=== PATIENT | female | born 1970 | race Caucasian/White ===

== ENCOUNTER 2017-10-02 11:15 | Observation (INO) | payer OTHER ==
[~2017-10-02 11:15] MED LIST: ATROPINE 1 MG/10 ML SYRINGE IV; DIPHENHYDRAMINE 50 MG INJ IV; EPHEDrine SULFATE 50 MG/5 ML SYG IV; FENTAnyl 50 MCG/ML VIAL IV; HYDROmorphONE (0.2 MG/ML) 10ML SYG IV; LABETALOL HCL 20MG INJ IV; MIDAZOLAM 1 MG/ML 2 ML INJ IV; ONDANSETRON 4 MG INJ IV; OXYCODONE/ACETAMINOPHEN (5/325) TAB PO; hydrALAzine 20 MG INJ IV; morphine (1 MG/ML) 10ML SYRINGE IV
[2017-10-02 12:41] LABS: ADD MAN DIFF? NO
[2017-10-02 12:43] LABS: BASOPHIL # 0.1 10^3/ul (0.0-0.1); BASOPHILS % 0.7 % (0.0-2.0); EOSINOPHILS # 0.4 10^3/ul (0.0-0.5); EOSINOPHILS % 3.4 % (0.0-7.0); HEMATOCRIT 35.6 % (37.0-47.0); HEMOGLOBIN 11.7 g/dl (12.0-16.0); LYMPHOCYTES # 3.9 10^3/ul (0.8-2.9); LYMPHOCYTES % 37.6 % (15.0-51.0); MEAN CORPUSCULAR HEMOGLOBIN 24.6 pg (29.0-33.0); MEAN CORPUSCULAR HGB CONC 32.9 g/dl (32.0-37.0); MEAN CORPUSCULAR VOLUME 74.9 fl (82.0-101.0); MONOCYTE # 0.4 10^3/ul (0.3-0.9); MONOCYTES % 4.2 % (0.0-11.0); NEUTROPHIL # 5.6 10^3/ul (1.6-7.5); NEUTROPHILS % 53.8 % (39.0-77.0); PLATELET COUNT 372 10^3/UL (140-415); RED BLOOD COUNT 4.75 10^6/ul (4.20-5.40); RED CELL DISTRIBUTION WIDTH 14.6 % (11.5-14.5)
[2017-10-02 12:43] LABS: WHITE BLOOD COUNT 10.5 10^3/ul (4.8-10.8)
[2017-10-02 12:53] LABS: ALANINE AMINOTRANSFERASE 88 IU/L (13-69); ALBUMIN 4.7 g/dl (3.3-4.9); ALBUMIN/GLOBULIN RATIO 1.34; ALKALINE PHOSPHATASE 109 IU/L (42-121); ANION GAP 14 (8-16); ASPARTATE AMINO TRANSFERASE 64 IU/L (15-46); BILIRUBIN,INDIRECT 0.7 mg/dl (0-1.1); BILIRUBIN,TOTAL 0.7 mg/dl (0.2-1.3); CARBON DIOXIDE 29 mmol/L (21-31); CHLORIDE 103 mmol/L (97-110); GLUCOSE 102 mg/dl (70-220); TOTAL PROTEIN 8.2 g/dl (6.1-8.1)
[2017-10-02 13:02] LABS: BLOOD UREA NITROGEN 8 mg/dl (7-20); CALCIUM 9.7 mg/dl (8.4-10.2); CREATININE 0.61 mg/dl (0.44-1.00); INR 0.95; POTASSIUM 4.2 mmol/L (3.5-5.1); PROTIME 12.8 Sec (11.9-14.9); SODIUM 142 mmol/L (135-144)
[2017-10-02 13:03] LABS: PARTIAL THROMBOPLASTIN TIME 29.9 Sec (25.0-35.0)
[2017-10-02] MEDS ORDERED: FENTAnyl 50 MCG/ML VIAL (13:35)
[2017-10-02] MEDS ORDERED: PROPOFOL 20 ML (13:35)
[2017-10-02] MEDS ORDERED: ONDANSETRON 4 MG INJ (13:36)
[2017-10-02] MEDS ORDERED: DEXAMETHASONE 4 MG/ML 1 ML INJ (13:36)
[2017-10-02] MEDS ORDERED: SUCCINYLCHOLINE CHLORIDE 100 MG/5 ML SYG IV (13:36)
[2017-10-02] MEDS ORDERED: GLYCOPYRROLATE 0.4 MG INJ (13:37)
[2017-10-02] MEDS ORDERED: NEOSTIGMINE 3 MG/3 ML SYRINGE (13:37)
[2017-10-02] MEDS ORDERED: morphine 2 MG INJ IV (16:00)
[2017-10-02] MEDS ORDERED: ACETAMINOPHEN 1000MG/100ML IV 100 ML IVPB (16:00)
[2017-10-02] MEDS ORDERED: ONDANSETRON 4 MG INJ IV (16:00)
[2017-10-02] MEDS: MEPERIDINE 25 MG INJ IV (16:36)
[2017-10-02] MEDS: HYDROmorphONE (0.2 MG/ML) 10ML SYG IV ×2 (16:37→17:06)
[2017-10-02] MEDS: D5W-0.45 NACL + KCL 20 MEQ 1,000 ML IV (17:32)
[2017-10-03] MEDS: D5W-0.45 NACL + KCL 20 MEQ 1,000 ML IV ×2 (00:52→10:00)
[2017-10-03 05:20] LABS: ADD MAN DIFF? NO
[2017-10-03 05:27] LABS: BASOPHILS % 0.3 % (0.0-2.0); EOSINOPHILS % 0.1 % (0.0-7.0); HEMATOCRIT 33.3 % (37.0-47.0); HEMOGLOBIN 10.9 g/dl (12.0-16.0); LYMPHOCYTES # 1.4 10^3/ul (0.8-2.9); LYMPHOCYTES % 11.7 % (15.0-51.0); MEAN CORPUSCULAR HEMOGLOBIN 24.9 pg (29.0-33.0); MEAN CORPUSCULAR HGB CONC 32.7 g/dl (32.0-37.0); MEAN CORPUSCULAR VOLUME 76.2 fl (82.0-101.0); MEAN PLATELET VOLUME 9.8 fl (7.4-10.4); MONOCYTE # 0.4 10^3/ul (0.3-0.9); MONOCYTES % 3.4 % (0.0-11.0); NEUTROPHILS % 84.2 % (39.0-77.0); PLATELET COUNT 332 10^3/UL (140-415); RED BLOOD COUNT 4.37 10^6/ul (4.20-5.40); RED CELL DISTRIBUTION WIDTH 14.6 % (11.5-14.5)
[2017-10-03 05:27] LABS: WHITE BLOOD COUNT 11.9 10^3/ul (4.8-10.8)
[2017-10-03 05:54] LABS: ALANINE AMINOTRANSFERASE 75 IU/L (13-69); ALBUMIN 4.3 g/dl (3.3-4.9); ALBUMIN/GLOBULIN RATIO 1.26; ALKALINE PHOSPHATASE 88 IU/L (42-121); ANION GAP 15 (8-16); ASPARTATE AMINO TRANSFERASE 46 IU/L (15-46); BILIRUBIN,INDIRECT 1.1 mg/dl (0-1.1); BILIRUBIN,TOTAL 1.1 mg/dl (0.2-1.3); BLOOD UREA NITROGEN 6 mg/dl (7-20); CALCIUM 9.4 mg/dl (8.4-10.2); CARBON DIOXIDE 27 mmol/L (21-31); CHLORIDE 105 mmol/L (97-110); CREATININE 0.52 mg/dl (0.44-1.00); GLUCOSE 140 mg/dl (70-220); POTASSIUM 4.9 mmol/L (3.5-5.1); SODIUM 142 mmol/L (135-144); TOTAL PROTEIN 7.7 g/dl (6.1-8.1)
[2017-10-03] MEDS: ACETAMINOPHEN 500 MG TAB PO (11:13)
== END 2017-10-03 18:01 | disposition home or self-care (01) ==
LOC: REC 11:15 → MS1 17:22
DX: C50.412 Malignant neoplasm of upper-outer quadrant of left female breast (principal); Z17.0 Estrogen receptor positive status [ER+]; E78.5 Hyperlipidemia, unspecified; J45.909 Unspecified asthma, uncomplicated; R74.8 Abnormal levels of other serum enzymes; Z80.3 Family history of malignant neoplasm of breast; Z88.8 Allergy status to other drugs, medicaments and biological substances
CPT/HCPCS: 19307; 80053; 84703; 85025; 85610; 85730; 88307; 99217

== ENCOUNTER 2017-11-12 07:42 | Day surgery (SDC) | payer OTHER ==
[2017-11-12] MEDS: LACTATED RINGER'S 1,000 ML IV* (08:30)
[2017-11-12] MEDS: SOD CHLORIDE 0.9% 500 ML (11:33)
[2017-11-12] MEDS: LIDOCAINE 1%/EPI 30 ML INJ (11:35)
[2017-11-12] MEDS: HEPARIN 1000 UNITS/ML 10 ML INJ (11:45)
[2017-11-12] MEDS: POLYMYXIN/BACITRACIN 1L IRRIG IRR (11:50)
[2017-11-12] MEDS: MIDAZOLAM 1 MG/ML 2 ML INJ (12:20)
[2017-11-12] MEDS: FENTAnyl 50 MCG/ML VIAL ×2 (12:20→12:21)
[2017-11-12] MEDS ORDERED: HYDROCODONE/APAP (5/325) TAB PO (13:00)
== END 2017-11-12 14:30 | disposition home or self-care (01) ==
LOC: SDS 07:42
DX: C50.912 Malignant neoplasm of unspecified site of left female breast (principal); R73.03 Prediabetes; E78.5 Hyperlipidemia, unspecified
CPT/HCPCS: 36561; 76942; 93306

== ENCOUNTER 2018-07-11 13:46 | Emergency (ER) | payer OTHER ==
[2018-07-11] MEDS: PROCHLORPERAZINE 10 MG INJ IV (16:54)
[2018-07-11] MEDS: SOD CHLORIDE 0.9% 1,000 ML IV (16:54)
[2018-07-11] MEDS: DIPHENHYDRAMINE 50 MG INJ IV (16:54)
[2018-07-11] MEDS: KETOROLAC 30 MG INJ IV (17:13)
== END 2018-07-11 18:50 | disposition home or self-care (01) ==
LOC: FTE 13:46
DX: R51 Headache (principal); Z85.3 Personal history of malignant neoplasm of breast
CPT/HCPCS: 70450; 81025; 96361; 96374; 96375; 99285-25

== ENCOUNTER 2019-04-13 00:29 | Emergency (ER) | payer OTHER ==
[2019-04-13] MEDS: AMOXICILLIN/CLAV 875 MG TAB PO (01:48)
[2019-04-13] MEDS: HYDROCODONE/APAP (5/325) TAB PO (02:56)
[2019-04-13] MEDS: ONDANSETRON (ODT) 4 MG TAB ODT (04:35)
== END 2019-04-13 04:36 | disposition home or self-care (01) ==
LOC: FTE 00:29
DX: J01.00 Acute maxillary sinusitis, unspecified (principal); R25.2 Cramp and spasm; E11.9 Type 2 diabetes mellitus without complications; R00.2 Palpitations; Z85.3 Personal history of malignant neoplasm of breast
CPT/HCPCS: 71046; 93005; 93970; 99285-25